=== PATIENT | male | born 1955 | race Caucasian/White ===

== ENCOUNTER 2020-03-01 13:05 | Emergency (ER) | payer MEDICARE, OTHER ==
[2020-03-01] MEDS ORDERED: EPINEPHrine 1:10,000 1 MG/10 ML Syringe IVPUSH ONE (13:10)
--- NOTE | 2020-03-01 15:38 | EDM.PDOC ---
ED HPI GENERAL MEDICAL PROBLEM - General Chief Complaint: CPR in Progress Stated Complaint: UNRESPONSIVE Time Seen by Provider: 03/01/20 13:05 Source of Information: Reports: EMS, EMS Notes Reviewed, Family History Limitations: Reports: Other () - History of Present Illness INITIAL COMMENTS - FREE TEXT/NARRATIVE: Davie Muniz, 64-year-old male, CPR in progress. No complaints had been noted by the family members. Mr. Muniz was hunting with family members when he went into cardiac arrest. CPR was in progress with dispatch at 1139 today. Arrival to the facility at 1305 after an intercept with advanced life support from the [place] [facility] with interosseous line placed and endotracheal intubation performed. 1 mg epinephrine was administered in route with no response. Upon the arrival of the [place] [facility], AED recommended 1 shock at which time no further Electrical activity was noted throughout the course of the resuscitation event. Onset: Today Duration: Minutes: Treatments PEPPER PICKER: Reports: CPR, IV/IO, Oxygen Past Medical History Cardiovascular History: Reports: Other (See Below) (Previous heart disease with no details provided) Neurological History: Reports: CVA (Review is with no specific details) Social & Family History - Family History Family Medical History: No Pertinent Family History ED ROS GENERAL - Review of Systems Review Of Systems: Unable To Obtain Reason Not Obtained: ED EXAM, GENERAL - Physical Exam Exam: See Below Free Text/Narrative:: Pulseless breathless secured to an ambulance cart with a Corey device providing compressions, endotracheal tube in place with bag valve device providing ventilation. Interosseous was placed in the sternum per supervisor salvage as well as the endotracheal tube. 1 mg epinephrine was administered in route with no response. Upon arrival in confirmation of asystole an additional 1 mg epinephrine was given in the emergency department and circulated with no response. Pupils were at 8 mm fixed with dry appearing cornea. Adequate air exchange was noted during ventilation process and femoral pulse was noted with the Corey device. Resuscitation status was called at 1316 hrs. with asystole present on the mo nitor Departure - Departure Time of Disposition: 13:16 Disposition: 20 Preliminary Cause of *Q: Cardiac Arrest Condition: Critical Clinical Impression: Respiratory arrest, Cardiac arrest, Cardiopulmonary arrest - Discharge Information *PRESCRIPTION DRUG MONITORING PROGRAM REVIEWED*: Not Applicable *COPY OF PRESCRIPTION DRUG MONITORING REPORT IN PATIENT DOMI: Not Applicable Referrals: [place] [Primary Care Provider] - Additional Instructions: Discussion with family, contact with [facility] will provide local services and assist family and transportation of the back to the [facility]. [facility] is contacted and is still pending their return phone call prior to the release of the body to the home - Problem List & Annotations (1) Cardiopulmonary arrest SNOMED Code(s): 921010613 Code(s): I46.9 - CARDIAC ARREST, CAUSE UNSPECIFIED Status: Acute Priority: High Current Visit: Yes - Problem List Review Problem List Initiated/Reviewed/Updated: Yes - Assessment/Plan Plan: Discussion with family, contact with [facility] will provide local services and assist family and transportation of the back to the [facility]. [facility] is contacted and is still pending their return phone call prior to the release of the body to the home
== END 2020-03-01 16:00 | disposition expired ==
LOC: KA.ED 13:05
DX: I46.9 Cardiac arrest, cause unspecified (principal)
CPT/HCPCS: 96374; 99285-25